=== PATIENT | male | born 1990 | race Two or more races ===

== ENCOUNTER 2024-03-18 09:13 | Emergency (ER) | payer OTHER ==
[~2024-03-18] VITALS: Ht 188 cm; Wt 65.8 kg
[2024-03-18] MEDS ORDERED: KETOROLAC TROMETHAMINE 30 MG VIAL ONE (12:38)
[2024-03-18] MEDS ORDERED: DIPHENHYDRAMINE HCL 50 MG/ML VIAL 1ML ONE (12:38)
[2024-03-18] MEDS ORDERED: FAMOTIDINE/PF 20 MG/2 ML VIAL ONE (12:39)
[2024-03-18] MEDS ORDERED: DIPHENHYDRAMINE HCL 50 MG/ML VIAL 1ML IV ONE (12:45)
[2024-03-18] MEDS ORDERED: KETOROLAC TROMETHAMINE 30 MG VIAL IV ONE (12:45)
[2024-03-18] MEDS ORDERED: METOCLOPRAMIDE HCL 5 MG/ML VIAL IV ONE (12:45)
[2024-03-18] MEDS ORDERED: FAMOTIDINE/PF 20 MG/2 ML VIAL IV ONE (12:45)
[2024-03-18] MEDS ORDERED: ONDANSETRON HCL 2 MG/ML VIAL ONE (12:52)
[2024-03-18] MEDS ORDERED: ONDANSETRON HCL 2 MG/ML VIAL IV ONE (13:00)
[2024-03-18] MEDS ORDERED: BUTALBITAL-ACE1 EACH PO (14:13)
== END 2024-03-18 14:16 | disposition home or self-care (01) ==
LOC: ER 09:15
DX: G43.809 Other migraine, not intractable, without status migrainosus (principal); J06.9 Acute upper respiratory infection, unspecified